=== PATIENT | female | born 1955 | race Caucasian/White ===

== ENCOUNTER 2017-10-03 11:00 | Outpatient (RCR) | payer BC, SELFPAY ==
--- NOTE | 2017-09-21 08:03 | AT_ITS ---
09/21/17 ATx1- See flow sheet. Skilled cueing to complete a LE strengthening program both open and closed chain activities as well as proximal hip girdle stabilization efforts for myokinematic stability of the knee. Program progressed today with resistance. Total Time: 60 minutes Direct Time: 20 minutes Minimal cueing was required when instructed in exercises and minimal cueing for cool down and warm up activities.
--- NOTE | 2017-09-26 11:33 | PTTR_ITS ---
DATE: 09/26/17 SUBJECTIVE: Iain states that there is no great deal of improvements over the past 3-4 weeks, but she openly admits to non compliancy of her HEP. She continues to avoid ascension and dissension of stairs as well as being on her knees or doing lengthy weightbearing activities for prolonged time periods. Pain is variable and sometimes medial and lateral to the knee. Other times she has pressure on the posterior aspect of her knee. While she has been avoiding such activities mentioned earlier, she does feel that she will be able to complete them. OBJECTIVE: Gait: Non antalgic, toe and heel walk WNL ROM: WNL and non painful Accessory Motion: PF and TF joint non painful Strength: Grossly 5/5 Quad/Hamstring, dorsiflexion/plantarflexion non painful Girth- 1cm increase of the (R) central knee verus the (L) Special Testing: Negative Mc Murrays, negative Apleys, negative patella femoral compression. Therapeutic procedures ([id number]). In addition to above assessment she was verbally encourage pt to continue with her HEP and she is now introduce all usual ADLs and functional tasks including reciprocal ascension and dissension stairs, gardening, long distance ambulation etc.. to see how she tolerates. Encourage her to wean and anticipate that she will get to her normal level of activity. Remind her of her burst Bakers Cyst likely contributing to the swelling in her (R) knee and the compression feeling that this can allow. Likely contributing to some of her symptoms at this time. Review POC which is discussed below. Direct treatment time: 30 minutes Total treatment time: 30minutes ASSESSMENT: Pt begins ther ex wellness flowsheet per my direction with show dog trainer see note for specifics. Iain presents with remarkable improvements in regards to her impairments and she continues to appreciate some low grade stiffness and swelling in the (R) knee, but we must not forget the Bakers Cyst burst that she suffered likely contributing to this discomfort. I anticipate that she likely has some underlying OA which allowed for development of her Bakers Cyst, considering todays negative special testing. I encourage pt to continue with a gross conditioning and strengthening program for LE for stability, improved proprioceptive control and general strengthening of the (R) LE to manage her hypothesized arthritic condition. She does not have resolution of symptoms within 3-4 weeks or with time I encourage her to seek ortho consult. Pt is in agreement with plan. PLAN: 2-3 sessions with [employer] for (R) ther ex performance per my direction until pt is appropriate for progression on to the MSP program.
--- NOTE | 2017-09-28 12:04 | PTTR_ITS ---
DATE: 09/28/17 SUBJECTIVE: Pt reports that she was pretty sore after working with the head animal trainer after last treatment. Wonders whether it was the work in the clinic gym or if she had simply overdone it with other scientific informatics project leader and activities. OBJECTIVE: Therapeutic procedures ([id number]). * X See flow sheet: Continued pt's LE strengthening program. Minimal changes, due to reported soreness. Added bridging for core stabilization. * X Provided skilled instruction in proper exercise performance. * X Other: Pt declined need for modalities at end of treatment. Direct treatment time: 25 minutes Total treatment time: 25 minutes
--- NOTE | 2017-10-03 12:19 | PTTR_ITS ---
DATE: 10/03/17 SUBJECTIVE: Pt reports feeling fine today. Reports had some increased discomfort after last session, indicates medial and lateral aspects of anterior knee. Reports that she also had some DOMS after last session. Reports that she feels she had overdone it prior to last treatment and blames that for knee pain, whereas muscle soreness was tolerable. OBJECTIVE: Therapeutic procedures ([id number]). * X See flow sheet: Continued pt's LE and core strengthening program per flow sheet. * X Provided skilled instruction in proper exercise performance: Instructed pt on using gym equipment safely and independently. * X Other: Pt to transition to [facility], recheck in a month with PT. Direct treatment time: 30 minutes Total treatment time: 30 minutes
== END 2017-10-20 23:59 | disposition home or self-care (01) ==
LOC: PT 11:00
PROVIDERS: PCP Family Medicine; Referring Provider Family Medicine; Visit Provider Family Medicine
DX: M25.561 Pain in right knee (principal); M25.461 Effusion, right knee
CPT/HCPCS: 97110; 97113

== ENCOUNTER → 2017-10-20 02:45 | Outpatient (CLI) | payer BC, SELFPAY ==
--- NOTE | 2017-10-20 15:20 | DI.REPORT_ITS ---
SYMPTOMS/DIAGNOSIS: SCREENING, Z12.31 MAMMOGRAMS: Mammograms were interpreted according to the usual protocol including computer analysis with CAD system, tomosynthesis and C view imaging. Comparison is with the prior examinations. No masses or microcalcifications are seen. There is nothing to suggest malignancy. IMPRESSION: Negative mammogram. Routine screening is recommended. Category 1 , breast density category B. MQSA ASSESSMENT OF FINDINGS: Negative. Category 1. Patient will receive a letter notifying them of these results. BI-RADS category B. There are scattered areas of fibroglandular density.
== END ==
PROVIDERS: PCP Family Medicine; Visit Provider Student in an Organized Health Care Education/Training Program
DX: Z12.31 Encounter for screening mammogram for malignant neoplasm of breast (principal)
CPT/HCPCS: 77063; 77067

== ENCOUNTER 2018-04-23 02:24 | Outpatient (CLI) | payer BC, SELFPAY ==
[2018-04-23 11:36] LABS: ALT 28 U/L (12-78); AST 19 U/L (15-37); Albumin 4.3 g/dL (3.4-5.0); Alkaline Phosphatase 109 U/L (46-116); Anion Gap 8.3 mmol/L (3-11); BUN 11 mg/dL (7-18); Bilirubin, Total 0.5 mg/dL (0.2-1.0); CO2 28.7 mmol/L (21.0-32.0); CREATININE 0.84 mg/dL (0.55-1.02); Calcium 9.3 mg/dL (8.5-10.1); Chloride 101 mmol/L (98-107); Cholesterol 157 mg/dL (50-200); Glucose 123 mg/dL (70-100); HDL Cholesterol 51 mg/dL (40-60); LDL CHOLESTEROL 91 mg/dL (<100); Potassium 4.5 mmol/L (3.5-5.1); Sodium 138 mmol/L (136-145); Total Protein 7.4 g/dL (6.4-8.2); Triglyceride 88 mg/dL (30-150)
== END 2018-04-23 02:44 ==
PROVIDERS: Nurse Practitioner; PCP Family Medicine; Visit Provider Student in an Organized Health Care Education/Training Program
DX: E78.5 Hyperlipidemia, unspecified (principal); E11.9 Type 2 diabetes mellitus without complications; R73.01 Impaired fasting glucose
CPT/HCPCS: 36415; 80053; 80061; 83721; 83036

== ENCOUNTER 2018-12-12 00:35 | Outpatient (CLI) | payer BC, SELFPAY ==
--- NOTE | 2018-12-12 16:34 | DI.DEXA_ITS ---
EXAM: XR DEXA BONE DENSITY W/WO QIAN INDICATION: post menopausal, height loss, Z78.0 ASYMPTOMATIC MENOPAUSAL STATE. COMPARISON: No exams were available for comparison TECHNIQUE: 2D digital imaging was performed. FINDINGS: The scanogram is unremarkable. For the left hip, a T-score -0.7 and a Z-score of 0.5 indicate osteop enia and increased fracture risk. For the lumbar spine, a T-score -1.3 and a Z-score 0.5 indicate os teopenia and an increased fracture risk. For the left forearm, a T-score of -1.1 and a Z-score 0.5 a re within the range.
== END 2018-12-12 00:55 ==
PROVIDERS: PCP Nurse Practitioner; Visit Provider Nurse Practitioner
DX: Z78.0 Asymptomatic menopausal state (principal); M85.88 Other specified disorders of bone density and structure, other site
CPT/HCPCS: 77080

== ENCOUNTER 2019-05-11 01:49 | Outpatient (CLI) | payer BC, SELFPAY ==
[2019-05-11 09:20] LABS: HCT 39.1 % (36.0-46.0); HGB 13.1 g/dL (12.0-15.5); Mean Corp. HGB Concentration 33.5 g/dL (32.0-36.0); Mean Corpuscular Hemoglobin 29.4 pg (27.0-33.0); Mean Corpuscular Volume 87.9 fL (80-95); Mean Platelet Volume 11.4 fL (8.0-11.0); Platelet Count 201 x1000/uL (130-400); RBC 4.45 m/cumm (4.00-5.20); RBC Distribution Width 12.5 % (11.7-14.6); White Blood Cell Count 5.48 k/cumm (4.4-10.8)
[2019-05-11 09:35] LABS: Hemoglobin A1C 6.3 % (3.8-5.6)
[2019-05-11 10:34] LABS: ALT 35 U/L (14-59); AST 25 U/L (15-37); Albumin 4.2 g/dL (3.4-5.0); Alkaline Phosphatase 119 U/L (46-116); Anion Gap 6.8 mmol/L (3-11); BUN 17 mg/dL (7-18); Bilirubin, Total 0.6 mg/dL (0.2-1.0); CO2 31.2 mmol/L (21.0-32.0); CREATININE 0.89 mg/dL (0.55-1.02); Calcium 9.1 mg/dL (8.5-10.1); Calculated LDL 117 mg/dL (<100); Chloride 102 mmol/L (98-107); Cholesterol 199 mg/dL (<200); Glucose 129 mg/dL (74-106); HDL Cholesterol 53 mg/dL (40-60); Potassium 4.3 mmol/L (3.5-5.1); Sodium 140 mmol/L (136-145); TSH (W/Ref FT4) 2.25 uIU/mL (0.36-3.74); Total Protein 7.3 g/dL (6.4-8.2); Triglyceride 148 mg/dL (<150)
== END 2019-05-11 02:09 ==
PROVIDERS: PCP Nurse Practitioner; Visit Provider Nurse Practitioner
DX: E78.5 Hyperlipidemia, unspecified (principal); R73.01 Impaired fasting glucose; E11.9 Type 2 diabetes mellitus without complications; F32.9 Major depressive disorder, single episode, unspecified; E66.9 Obesity, unspecified
CPT/HCPCS: 36415; 80053; 80061; 85027; 83036; 84443

== ENCOUNTER 2019-08-27 00:58 | Outpatient (CLI) | payer BC, SELFPAY ==
--- NOTE | 2019-08-27 12:28 | DI.MAMMO_ITS ---
EXAM: MAMMO SCREENING CLINICAL HISTORY: screening, Z12.39 TECHNIQUE: Mammograms were interpreted according to the usual protocol including computer analysis w [employer] CAD system, tomosynthesis and C-view imaging. COMPARISON: 2011 through 2018 FINDINGS: The breasts are composed of mainly fatty density , Breast Density category A. No suspicious masses or suspicious microcalcifications are seen. No skin thickening or abnormal axillary lymph nodes are seen. There has been no significant change from prior exams. IMPRESSION: BI-RADS Category 1, negative. Yearly screening mammography is recommended. Breast Density Category A, fatty density. Density:
== END 2019-08-27 01:18 ==
PROVIDERS: PCP Nurse Practitioner; Visit Provider Nurse Practitioner
DX: Z12.31 Encounter for screening mammogram for malignant neoplasm of breast (principal)
CPT/HCPCS: 77063; 77067

== ENCOUNTER 2019-10-25 03:43 | Outpatient (CLI) | payer BC, SELFPAY ==
[2019-10-25 08:54] LABS: Hemoglobin A1C 5.7 % (<5.7)
== END 2019-10-25 04:03 ==
PROVIDERS: PCP Nurse Practitioner; Visit Provider Family Medicine
DX: E11.9 Type 2 diabetes mellitus without complications (principal)
CPT/HCPCS: 36415; 83036

== ENCOUNTER 2020-02-19 03:17 | Outpatient (CLI) | payer BC, SELFPAY ==
[2020-02-20 03:49] LABS: COVID-19 RT-PCR UVMMC Result Negative (Negative)
== END 2020-02-19 03:37 ==
PROVIDERS: PCP Nurse Practitioner; Visit Provider Internal Medicine Cardiovascular Disease
DX: Z11.59 Encounter for screening for other viral diseases (principal)
CPT/HCPCS: U0003

== ENCOUNTER 2020-02-25 00:41 | Outpatient (CLI) | payer BC, SELFPAY ==
--- NOTE | 2020-02-25 08:50 | ETT_ITS ---
APPROVED REPORT Exam: Exercise Treadmill Patient Location: Out-Patient Room/Bed: Stress Nurse: Becki Salazar RN BMI: 34.71 Baseline Rhythm: Sinus Rhythm Indications: Dyspnea on exertion. Medical History Medical History: HTN, MCDOWELL, Anxiety, Pre-DM, HLD, Obesity Cardiac Medications: Aspirin, Losartan, Atorvastatin Allergies: Desipramine Cardiac Risk Factors: HTN, Hyperlipidemia, FHX of CAD, DM Previous Cardiac Procedures: None Pretest Chest Pain Characteristics: None Exercise History: Physically active (walks daily). Physical Disabilities: None. Lung Sounds: Clear to auscultation Heart Sounds: Regular Stress Test Details Test: Exercise stress testing was performed using a Artur protocol. Rest Stress HR Resting HR Supine: 64 bpm Max Heart Rate (APMHR): 154 bpm Resting HR Standin bpm Target HR (85% APMHR): 130 bpm Max HR Achieved: 146 bpm % of APMHR: 94 Recovery HR: 77 bpm HR response to stress: Normal HR response to stress BP Resting BP Supine: 132/76 mmHg Resting BP Standin/58 mmHg Max BP: 170/64 mmHg Recovery BP: 138/68 mmHg BP response to stress: Normal blood pressure response to stress. ECG Resting ECG: Sinus Rhythm Ectopy: None. Stress ECG: Sinus Tachycardia ST Change: No significant ST segment changes. Arrhythmia: None Recovery ECG: Sinus Rhythm Recovery ST Change: No significant ST segment changes. Recovery Arrhythmia: Rare PVC. Clinical Reason for Termination: Dyspnea, Dizziness Stress Symptoms: Dyspnea, Dizziness Exercise duration: 7 min39 sec Highest Stage Reached: Stage 3: 3.4 mph at 14% grade. Exercise capacity: 9.6 METs Stress ECG Conclusion 1. The patient exercised for 8 minutes (10 METS). Exercise was stopped due to dyspnea. 2. There were no ECG changes suggestive of ischemia. 3. The Awad Score ( 8) estimates an annual cardiovascular mortality of 0% and a five year survival of 95%. Using the Awad Score there is a low probability of any angiographic coronary disease. Stress Test Summary STAGE Time (mins) Speed (mph) Grade (%) HR BP SYMPTOMS METS Supine 64 132/76 SpO2 96% Standing 71 122/58 SpO2 97% 1 3 1.7 10 113 140/66 SOB by minute 2. 4.6 2 6 2.5 12 140 162/60 7 3 9 3.4 14 SOB, dizziness just prior to ending test. 10.2 1 min recovery 122 170/64 Dizziness resolved within seconds of ending test. 3 min recovery 89 162/70 SOB resolved. 6 min recovery 77 138/68 SpO2 98%
== END 2020-02-25 01:01 ==
PROVIDERS: PCP Nurse Practitioner; Visit Provider Internal Medicine Cardiovascular Disease
DX: R06.09 Other forms of dyspnea (principal); I10 Essential (primary) hypertension; E78.5 Hyperlipidemia, unspecified; Z82.49 Family history of ischemic heart disease and other diseases of the circulatory system; E11.9 Type 2 diabetes mellitus without complications
CPT/HCPCS: 93017

== ENCOUNTER 2020-08-07 03:04 | Outpatient (CLI) | payer BC, SELFPAY ==
[2020-08-07 08:24] LABS: Hemoglobin A1C 5.6 % (<5.7)
[2020-08-07 09:15] LABS: ALT 26 U/L (14-59); AST 15 U/L (15-37); Albumin 3.9 g/dL (3.4-5.0); Alkaline Phosphatase 103 U/L (46-116); Anion Gap 8.1 mmol/L (3-11); BUN 8 mg/dL (7-18); Bilirubin, Total 0.4 mg/dL (0.2-1.0); CO2 27.9 mmol/L (21.0-32.0); CREATININE 0.7 mg/dL (0.55-1.02); Calcium 8.8 mg/dL (8.5-10.1); Calculated LDL 72 mg/dL (<100); Chloride 101 mmol/L (98-107); Cholesterol 137 mg/dL (<200); Glucose 128 mg/dL (74-106); HDL Cholesterol 46 mg/dL (40-60); Potassium 4.7 mmol/L (3.5-5.1); Sodium 137 mmol/L (136-145); Total Protein 6.5 g/dL (6.4-8.2); Triglyceride 95 mg/dL (<150)
== END 2020-08-07 03:05 | disposition home or self-care (01) ==
LOC: LBO 03:04
PROVIDERS: PCP Nurse Practitioner; Visit Provider Nurse Practitioner
DX: I10 Essential (primary) hypertension; R73.03 Prediabetes; E78.5 Hyperlipidemia, unspecified; E66.9 Obesity, unspecified
CPT/HCPCS: 36415; 80053; 80061; 83036

== ENCOUNTER 2021-08-18 01:51 | Outpatient (CLI) | payer BC, SELFPAY ==
[2021-08-18 12:29] LABS: HGB 13.3 g/dL (11.2-15.7); MCH 31.5 pg (27.0-33.0); MCV 90 fL (80-95); MPV 12.4 fL (8.0-11.0); Platelet Count 175 10^3/uL (130-400); RBC 4.22 10^6/uL (3.93-5.22); RDW 12.3 % (11.7-14.6); RDW-SD 40.8 fL; WBC 5.43 10^3/uL (4.4-10.8)
[2021-08-18 12:50] LABS: Hemoglobin A1C 5.8 % (<5.7)
[2021-08-18 12:52] LABS: ALT 25 U/L (14-59); AST 22 U/L (15-37); Albumin 4.2 g/dL (3.4-5.0); Alkaline Phosphatase 105 U/L (46-116); Anion Gap 3.5 mmol/L (3-11); BUN 17 mg/dL (7-18); Bilirubin, Total 0.6 mg/dL (0.2-1.0); CO2 30.5 mmol/L (21.0-32.0); CREATININE 0.8 mg/dL (0.55-1.02); Calcium 8.8 mg/dL (8.5-10.1); Calculated LDL 89 mg/dL (<100); Chloride 98 mmol/L (98-107); Cholesterol 163 mg/dL (<200); Glucose 127 mg/dL (74-106); HDL Cholesterol 53 mg/dL (40-60); Potassium 4.6 mmol/L (3.5-5.1); Sodium 132 mmol/L (136-145); Total Protein 7.4 g/dL (6.4-8.2); Triglyceride 107 mg/dL (<150)
== END 2021-08-18 01:52 | disposition home or self-care (01) ==
LOC: LOS 01:52
PROVIDERS: PCP Nurse Practitioner; Visit Provider Nurse Practitioner
DX: E78.5 Hyperlipidemia, unspecified (principal); R73.03 Prediabetes
CPT/HCPCS: 36415; 80053; 80061; 85027; 83036

== ENCOUNTER → 2021-08-30 02:13 | Outpatient (CLI) | payer BC, SELFPAY ==
--- NOTE | 2021-08-30 08:00 | DI.MAMMO_ITS ---
Exam(s) MAMMO SCREENING EXAM: MAMMO SCREENING CLINICAL HISTORY: screening,z12.39. TECHNIQUE: Bilateral full field digital CC and MLO mammographic images were obtained with 3D tomosyn thesis and utilizing computer aided detection (CAD). COMPARISON: Prior mammograms were reviewed, the most recent being August 2019. FINDINGS: There has been no significant change in the appearance and distribution of the fibroglandular tissue No CAD designations. There are no new spiculated masses nor malignant appearing microcalcification groups. There is no significant architectural distortion nor skin thickening-retraction. IMPRESSION: No radiographic evidence of malignancy. BI-RADS Category 1 - Negative Breast Density - Category B - Scattered areas of fibroglandular density Breast density Category C or D implies that the patient has dense breast tissue. Dense breast tissue can make it harder to find cancer on a mammogram. Dense breast tissue is also associated with an incr eased risk of breast cancer. This information about the result of the mammogram report was provided to the patient to raise their awareness. Use this report when you speak with the patient about their risks for breast cancer, which includes their family history. At that time, you may recommend additional screening tests (Ultrasoun d or MRI) as these tests may add significant information. A negative radiographic report should not delay biopsy if a dominant or clinically suspicious mass is present. Up to ten percent of cancers are not identified on mammography. A negative report may reinforce clinical impression. Adenosis and dense breasts may obscure an underlying neoplasm. False positive reports average 6 to 10%. Patient will receive a letter notifying them of these results.
== END ==
PROVIDERS: PCP Nurse Practitioner; Visit Provider Nurse Practitioner
DX: Z12.31 Encounter for screening mammogram for malignant neoplasm of breast (principal)
CPT/HCPCS: 77063; 77067

== ENCOUNTER 2022-09-05 03:27 | Outpatient (CLI) | payer MEDICARE, SELFPAY ==
--- NOTE | 2022-09-05 09:00 | DI.MAMMO_ITS ---
Exam(s) MAMMO SCREENING EXAM: MAMMO SCREENING CLINICAL HISTORY: screening,Z12.39 TECHNIQUE: Mammograms were interpreted according to the usual protocol including computer analysis w [email or web address] CAD system, tomosynthesis and C-view imaging. COMPARISON: 2015 through 2021 FINDINGS: The breasts are composed of scattered fibroglandular densities, Breast Density category B. No suspicious masses or suspicious microcalcifications are seen. No skin thickening or abnormal axillary lymph nodes are seen. There has been no significant change from prior exams. IMPRESSION: BI-RADS Category 1, Negative mammogram Yearly screening mammography is recommended. Breast Density - Category B, scattered fibroglandular densities. A negative radiographic report should not delay biopsy if a dominant or clinically suspicious mass is present. Up to ten percent of cancers are not identified on mammography. A negative report may reinforce clinical impression. Adenosis and dense breasts may obscure an underlying neoplasm. False positive reports average 6 to 10%. Patient will receive a letter notifying them of these results.
== END 2022-09-05 03:47 ==
LOC: DI 03:28
PROVIDERS: PCP Nurse Practitioner; Visit Provider Nurse Practitioner
DX: Z12.31 Encounter for screening mammogram for malignant neoplasm of breast (principal)
CPT/HCPCS: 77063; 77067

== ENCOUNTER 2022-09-05 04:05 | Outpatient (CLI) | payer MEDICARE, SELFPAY ==
[2022-09-05 08:26] LABS: ALT 24 U/L (14-59); AST 21 U/L (15-37); Albumin 4.2 g/dL (3.4-5.0); Alkaline Phosphatase 118 U/L (46-116); Anion Gap 6.7 mmol/L (3-11); BUN 13 mg/dL (7-18); Bilirubin, Total 0.7 mg/dL (0.2-1.0); CO2 30.3 mmol/L (21.0-32.0); CREATININE 0.8 mg/dL (0.55-1.02); Calculated LDL 88 mg/dL (<100); Chloride 101 mmol/L (98-107); Cholesterol 161 mg/dL (<200); Estimated GFR 79.71 (mL/min/1.73m2); Glucose 119 mg/dL (74-106); HDL Cholesterol 62 mg/dL (40-60); Potassium 4.2 mmol/L (3.5-5.1); Sodium 138 mmol/L (136-145); Total Protein 7.4 g/dL (6.4-8.2); Triglyceride 55 mg/dL (<150)
[2022-09-05 08:34] LABS: Hemoglobin A1C 5.6 % (<5.7)
== END 2022-09-05 04:06 | disposition home or self-care (01) ==
LOC: LBO 04:05
PROVIDERS: PCP Nurse Practitioner; Visit Provider Nurse Practitioner
DX: E78.5 Hyperlipidemia, unspecified (principal); L40.9 Psoriasis, unspecified; I10 Essential (primary) hypertension; E11.9 Type 2 diabetes mellitus without complications
CPT/HCPCS: 36415; 80053; 80061; 83036

== ENCOUNTER → 2022-10-21 01:28 | Outpatient (CLI) | payer MEDICARE, SELFPAY ==
--- NOTE | 2022-10-21 08:00 | DI.DEXA_ITS ---
Exam(s) XR DEXA BONE DENSITY W/WO QIAN EXAM: XR DEXA BONE DENSITY W/WO QIAN CLINICAL HISTORY: f/u osteopenia, asymptomatic menopausal state, Z78.0, M85.80 TECHNIQUE: COMPARISON: CR XR DEXA BONE DENSITY W/WO QIAN from 12/12/2018 FINDINGS: Lateral Spine Image: Unremarkable. No compression deformities identified. Left hip: Total T-Score: -1.0. This compares to -0.7 on the prior examination. Total Z-Score: 0.5 T- and Z-scores: Within normal limits. Lumbar Spine: Total T-Score: -0.8. This compares to -1.3 on the prior examination. Total Z-Score: 1.2 T- and Z-scores: Within normal limits. IMPRESSION: No evidence of osteoporosis.
== END ==
PROVIDERS: PCP Nurse Practitioner; Visit Provider Nurse Practitioner
DX: Z78.0 Asymptomatic menopausal state; Z13.820 Encounter for screening for osteoporosis
CPT/HCPCS: 77080

== ENCOUNTER 2023-10-09 02:46 | Outpatient (CLI) | payer MEDICARE, SELFPAY ==
--- NOTE | 2023-10-09 07:30 | DI.MAMMO_ITS ---
Exam(s) MAMMO SCREENING EXAM: MAMMO SCREENING CLINICAL HISTORY: screening,z12.39 TECHNIQUE: Mammograms were interpreted according to the usual protocol including computer analysis w [employer] CAD system, tomosynthesis and C-view imaging. COMPARISON: 2015 through 2022 FINDINGS: The breasts are composed of scattered fibroglandular densities, Breast Density category B. No suspicious masses or suspicious microcalcifications are seen. No skin thickening or abnormal axillary lymph nodes are seen. There has been no significant change from prior exams. IMPRESSION: BI-RADS Category 1, Negative mammogram Yearly screening mammography is recommended. Breast Density - Category B, scattered fibroglandular densities. A negative radiographic report should not delay biopsy if a dominant or clinically suspicious mass is present. Up to ten percent of cancers are not identified on mammography. A negative report may reinforce clinical impression. Adenosis and dense breasts may obscure an underlying neoplasm. False positive reports average 6 to 10%. Patient will receive a letter notifying them of these results.
== END 2023-10-09 03:06 ==
LOC: DI 02:46
PROVIDERS: PCP Nurse Practitioner; Visit Provider Nurse Practitioner
DX: Z12.31 Encounter for screening mammogram for malignant neoplasm of breast (principal)
CPT/HCPCS: 77063; 77067

== ENCOUNTER 2023-11-06 15:03 | Outpatient (REF) | payer MEDICARE, SELFPAY ==
--- NOTE | 2023-11-06 15:00 | ENDOMET_PTH ---
PATIENT: Iain Dow LOC: [facility]#:[id number] AGE/SX: 68/F ROOM: RE11/06/[address]: Jenna Baker : 1955 BED: DIS: 11/06/2023 SPEC #: [id number] RECD: 11/06/23 17:40 STATUS: ALEJANDRO REQ #: [id number] DRISS: 11/06/23 15:[address]: Jenna Baker DEPT: Surgical Specimen RECD BY: Jenni Antony ENTERED: 11/06/23 17:40 SP TYPE: Endomet OTHR DR: Nydia Mosley APRN Tissues: 1 - ENDOMETRIUM BX/CURRETTE Procedures: GROSS AND MICRO LEVEL 4 Comments: [id number]
== END 2023-11-06 15:04 | disposition home or self-care (01) ==
LOC: LBN 15:03
PROVIDERS: PCP Nurse Practitioner; Visit Provider Obstetrics & Gynecology Gynecology
DX: N95.0 Postmenopausal bleeding (principal); Z92.89 Personal history of other medical treatment; C54.3 Malignant neoplasm of fundus uteri
CPT/HCPCS: 88305

== ENCOUNTER 2024-02-26 04:07 | Outpatient (CLI) | payer MEDICARE, SELFPAY ==
[2024-02-26 11:59] LABS: Abs Immature Grans 0.01 10^3/uL (0.0-0.06); Absolute Basophil Count 0.07 10^3/uL (0.0-0.2); Absolute Eosinophil Count 0.19 10^3/uL (0.0-0.7); Absolute Lymphocyte Count 1.45 10^3/uL (1.2-3.4); Absolute Monocyte Count 0.69 10^3/uL (0.1-0.8); Absolute Neutrophil Count 3.46 10^3/uL (1.2-6.7); Basophils % 1.2 %; Eosinophils % 3.2 %; HCT 36.3 % (36.0-46.0); HGB 11.9 g/dL (11.2-15.7); Immature Grans % 0.2 %; Lymphocytes % 24.7 %; MCH 28.3 pg (27.0-33.0); MCHC 32.8 % (32.0-36.0); MCV 86 fL (80-95); MPV 11.3 fL (8.0-11.0); Monocytes % 11.8 %; Neutrophils % 58.9 %; Platelet Count 180 10^3/uL (130-400); RBC 4.21 10^6/uL (3.93-5.22); RDW 13.7 % (11.7-14.6); RDW-SD 42.6 fL; WBC 5.87 10^3/uL (4.4-10.8)
[2024-02-26 12:17] LABS: ALT 26 U/L (14-59); AST 19 U/L (15-37); Albumin 3.9 g/dL (3.4-5.0); Alkaline Phosphatase 117 U/L (46-116); Anion Gap 3.9 mmol/L (3-11); BUN 12 mg/dL (7-18); Bilirubin, Total 0.54 mg/dL (0.2-1.0); CO2 31.1 mmol/L (21.0-32.0); CREATININE 0.8 mg/dL (0.55-1.02); Calcium 8.9 mg/dL (8.5-10.1); Chloride 100 mmol/L (98-107); Estimated GFR 79.22 (mL/min/1.73m2); Glucose 109 mg/dL (74-106); Potassium 4.1 mmol/L (3.5-5.1); Sodium 135 mmol/L (136-145); Total Protein 7.6 g/dL (6.4-8.2)
== END 2024-02-26 04:08 | disposition home or self-care (01) ==
LOC: LBO 04:07
PROVIDERS: PCP Nurse Practitioner; Visit Provider Obstetrics & Gynecology Gynecologic Oncology
DX: C54.1 Malignant neoplasm of endometrium (principal)
CPT/HCPCS: 36415; 80053; 85025

== ENCOUNTER 2024-03-20 04:01 | Outpatient (CLI) | payer MEDICARE, SELFPAY ==
[2024-03-20 10:11] LABS: Abs Immature Grans 0.02 10^3/uL (0.0-0.06); Absolute Basophil Count 0.07 10^3/uL (0.0-0.2); Absolute Eosinophil Count 0.09 10^3/uL (0.0-0.7); Absolute Lymphocyte Count 1.04 10^3/uL (1.2-3.4); Absolute Monocyte Count 0.74 10^3/uL (0.1-0.8); Absolute Neutrophil Count 2.32 10^3/uL (1.2-6.7); Basophils % 1.6 %; Eosinophils % 2.1 %; HCT 34.5 % (36.0-46.0); HGB 11.3 g/dL (11.2-15.7); Immature Grans % 0.5 %; Lymphocytes % 24.3 %; MCH 29.3 pg (27.0-33.0); MCHC 32.8 % (32.0-36.0); MCV 89 fL (80-95); MPV 10.5 fL (8.0-11.0); Monocytes % 17.3 %; Neutrophils % 54.2 %; Platelet Count 158 10^3/uL (130-400); RBC 3.86 10^6/uL (3.93-5.22); RDW 15.3 % (11.7-14.6); RDW-SD 49.2 fL; WBC 4.28 10^3/uL (4.4-10.8)
[2024-03-20 10:56] LABS: ALT 27 U/L (14-59); AST 20 U/L (15-37); Alkaline Phosphatase 117 U/L (46-116); Anion Gap 5.7 mmol/L (3-11); BUN 15 mg/dL (7-18); Bilirubin, Total 0.38 mg/dL (0.2-1.0); CO2 30.3 mmol/L (21.0-32.0); CREATININE 0.8 mg/dL (0.55-1.02); Chloride 102 mmol/L (98-107); Estimated GFR 79.22 (mL/min/1.73m2); Glucose 102 mg/dL (74-106); Potassium 4.3 mmol/L (3.5-5.1); Sodium 138 mmol/L (136-145); Total Protein 7.6 g/dL (6.4-8.2)
== END 2024-03-20 04:02 | disposition home or self-care (01) ==
LOC: LBO 04:01
PROVIDERS: PCP Nurse Practitioner; Visit Provider Obstetrics & Gynecology Gynecologic Oncology
DX: C54.1 Malignant neoplasm of endometrium (principal)
CPT/HCPCS: 36415; 80053; 85025

== ENCOUNTER 2024-04-10 02:20 | Outpatient (CLI) | payer MEDICARE, SELFPAY ==
[2024-04-10 09:30] LABS: Abs Immature Grans 0.01 10^3/uL (0.0-0.06); Absolute Basophil Count 0.03 10^3/uL (0.0-0.2); Absolute Eosinophil Count 0.05 10^3/uL (0.0-0.7); Absolute Lymphocyte Count 0.82 10^3/uL (1.2-3.4); Absolute Monocyte Count 0.52 10^3/uL (0.1-0.8); Absolute Neutrophil Count 0.78 10^3/uL (1.2-6.7); Basophils % 1.4 %; Eosinophils % 2.3 %; HCT 33.4 % (36.0-46.0); HGB 10.9 g/dL (11.2-15.7); Immature Grans % 0.5 %; Lymphocytes % 37.1 %; MCH 29.5 pg (27.0-33.0); MCHC 32.6 % (32.0-36.0); MCV 90 fL (80-95); MPV 10.1 fL (8.0-11.0); Monocytes % 23.5 %; Neutrophils % 35.2 %; Platelet Count 119 10^3/uL (130-400); RDW 16.2 % (11.7-14.6); RDW-SD 53.5 fL; WBC 2.21 10^3/uL (4.4-10.8)
[2024-04-10 10:05] LABS: Diff Comment Diff Reviewed; RBC Morphology Normal
[2024-04-10 10:07] LABS: ALT 34 U/L (14-59); AST 20 U/L (15-37); Albumin 3.9 g/dL (3.4-5.0); Alkaline Phosphatase 107 U/L (46-116); Anion Gap 3.9 mmol/L (3-11); BUN 11 mg/dL (7-18); Bilirubin, Total 0.45 mg/dL (0.2-1.0); CO2 32.1 mmol/L (21.0-32.0); CREATININE 0.8 mg/dL (0.55-1.02); Chloride 101 mmol/L (98-107); Estimated GFR 79.22 (mL/min/1.73m2); Glucose 102 mg/dL (74-106); Sodium 137 mmol/L (136-145); Total Protein 7.4 g/dL (6.4-8.2)
== END 2024-04-10 02:21 | disposition home or self-care (01) ==
PROVIDERS: PCP Nurse Practitioner; Visit Provider Obstetrics & Gynecology Gynecologic Oncology
DX: C54.1 Malignant neoplasm of endometrium (principal)
CPT/HCPCS: 36415; 80053; 85025

== ENCOUNTER 2024-04-16 02:43 | Outpatient (CLI) | payer MEDICARE, SELFPAY ==
[2024-04-16 13:31] LABS: Abs Immature Grans 0.02 10^3/uL (0.0-0.06); Absolute Basophil Count 0.03 10^3/uL (0.0-0.2); Absolute Eosinophil Count 0.04 10^3/uL (0.0-0.7); Absolute Lymphocyte Count 0.99 10^3/uL (1.2-3.4); Absolute Monocyte Count 0.68 10^3/uL (0.1-0.8); Basophils % 0.7 %; Eosinophils % 0.9 %; HCT 33.9 % (36.0-46.0); HGB 11.1 g/dL (11.2-15.7); Immature Grans % 0.4 %; Lymphocytes % 22.2 %; MCH 29.9 pg (27.0-33.0); MCHC 32.7 % (32.0-36.0); MCV 91 fL (80-95); MPV 9.7 fL (8.0-11.0); Monocytes % 15.2 %; Neutrophils % 60.6 %; Platelet Count 162 10^3/uL (130-400); RBC 3.71 10^6/uL (3.93-5.22); RDW-SD 56.2 fL; WBC 4.46 10^3/uL (4.4-10.8)
[2024-04-16 14:04] LABS: ALT 27 U/L (14-59); AST 19 U/L (15-37); Albumin 4.1 g/dL (3.4-5.0); Alkaline Phosphatase 115 U/L (46-116); Anion Gap 3.6 mmol/L (3-11); BUN 15 mg/dL (7-18); Bilirubin, Total 0.48 mg/dL (0.2-1.0); CO2 32.4 mmol/L (21.0-32.0); CREATININE 0.8 mg/dL (0.55-1.02); Calcium 9.3 mg/dL (8.5-10.1); Chloride 102 mmol/L (98-107); Estimated GFR 79.22 (mL/min/1.73m2); Glucose 81 mg/dL (74-106); Potassium 4.3 mmol/L (3.5-5.1); Sodium 138 mmol/L (136-145); Total Protein 7.6 g/dL (6.4-8.2)
== END 2024-04-16 02:44 | disposition home or self-care (01) ==
PROVIDERS: PCP Nurse Practitioner; Visit Provider Obstetrics & Gynecology Gynecologic Oncology
DX: C54.1 Malignant neoplasm of endometrium (principal)
CPT/HCPCS: 36415; 80053; 85025

== ENCOUNTER 2024-05-08 03:55 | Outpatient (CLI) | payer MEDICARE, SELFPAY ==
[2024-05-08 10:08] LABS: Abs Immature Grans 0.01 10^3/uL (0.0-0.06); Absolute Basophil Count 0.04 10^3/uL (0.0-0.2); Absolute Eosinophil Count 0.03 10^3/uL (0.0-0.7); Absolute Lymphocyte Count 0.97 10^3/uL (1.2-3.4); Absolute Neutrophil Count 2.01 10^3/uL (1.2-6.7); Basophils % 1.1 %; Eosinophils % 0.8 %; HCT 28.9 % (36.0-46.0); Immature Grans % 0.3 %; Lymphocytes % 25.8 %; MCH 31.4 pg (27.0-33.0); MCHC 34.6 % (32.0-36.0); MCV 91 fL (80-95); MPV 10.9 fL (8.0-11.0); Monocytes % 18.6 %; Neutrophils % 53.4 %; Platelet Count 164 10^3/uL (130-400); RBC 3.18 10^6/uL (3.93-5.22); RDW 17.1 % (11.7-14.6); RDW-SD 56.3 fL; WBC 3.76 10^3/uL (4.4-10.8)
[2024-05-08 10:53] LABS: ALT 24 U/L (14-59); AST 18 U/L (15-37); Albumin 3.8 g/dL (3.4-5.0); Alkaline Phosphatase 113 U/L (46-116); Anion Gap 9.2 mmol/L (3-11); BUN 14 mg/dL (7-18); Bilirubin, Total 0.5 mg/dL (0.2-1.0); CO2 29.8 mmol/L (21.0-32.0); CREATININE 0.7 mg/dL (0.55-1.02); Calcium 9.5 mg/dL (8.5-10.1); Chloride 100 mmol/L (98-107); Estimated GFR 92.98 (mL/min/1.73m2); Glucose 100 mg/dL (74-106); Potassium 4.3 mmol/L (3.5-5.1); Sodium 139 mmol/L (136-145); Total Protein 7.3 g/dL (6.4-8.2)
== END 2024-05-08 03:56 | disposition home or self-care (01) ==
PROVIDERS: PCP Nurse Practitioner; Visit Provider Obstetrics & Gynecology Gynecologic Oncology
DX: C54.1 Malignant neoplasm of endometrium (principal)
CPT/HCPCS: 36415; 80053; 85025

== ENCOUNTER 2024-06-06 01:01 | Outpatient (CLI) | payer MEDICARE, SELFPAY ==
[2024-06-06 09:31] LABS: Abs Immature Grans 0.01 10^3/uL (0.0-0.06); Absolute Basophil Count 0.02 10^3/uL (0.0-0.2); Absolute Eosinophil Count 0.07 10^3/uL (0.0-0.7); Absolute Lymphocyte Count 0.73 10^3/uL (1.2-3.4); Absolute Monocyte Count 0.21 10^3/uL (0.1-0.8); Absolute Neutrophil Count 1.18 10^3/uL (1.2-6.7); Basophils % 0.9 %; Eosinophils % 3.2 %; HGB 10.6 g/dL (11.2-15.7); Immature Grans % 0.5 %; Lymphocytes % 32.9 %; MCH 34.2 pg (27.0-33.0); MCHC 35.3 % (32.0-36.0); MCV 97 fL (80-95); MPV 10.8 fL (8.0-11.0); Monocytes % 9.5 %; Platelet Count 107 10^3/uL (130-400); RDW 16.4 % (11.7-14.6); RDW-SD 58.5 fL; WBC 2.22 10^3/uL (4.4-10.8)
[2024-06-06 10:00] LABS: Calculated LDL 74 mg/dL (<100); Cholesterol 146 mg/dL (<200); HDL Cholesterol 51 mg/dL (>or=50); Triglyceride 106 mg/dL (<150)
[2024-06-06 10:45] LABS: ALT 27 U/L (14-59); AST 20 U/L (15-37); Albumin 4.1 g/dL (3.4-5.0); Alkaline Phosphatase 108 U/L (46-116); BUN 11 mg/dL (7-18); Bilirubin, Total 0.7 mg/dL (0.2-1.0); CREATININE 0.8 mg/dL (0.55-1.02); Calcium 9.1 mg/dL (8.5-10.1); Chloride 102 mmol/L (98-107); Estimated GFR 79.22 (mL/min/1.73m2); Glucose 125 mg/dL (74-106); Potassium 4.1 mmol/L (3.5-5.1); Sodium 140 mmol/L (136-145); Total Protein 7.3 g/dL (6.4-8.2)
== END 2024-06-06 01:02 | disposition home or self-care (01) ==
PROVIDERS: PCP Nurse Practitioner; Visit Provider Obstetrics & Gynecology Gynecologic Oncology
DX: C54.1 Malignant neoplasm of endometrium (principal); E78.5 Hyperlipidemia, unspecified
CPT/HCPCS: 36415; 80053; 80061; 85025

== ENCOUNTER 2024-06-26 01:49 | Outpatient (CLI) | payer MEDICARE, SELFPAY ==
[2024-06-26 09:24] LABS: Abs Immature Grans 0.04 10^3/uL (0.0-0.06); Absolute Basophil Count 0.02 10^3/uL (0.0-0.2); Absolute Eosinophil Count 0.02 10^3/uL (0.0-0.7); Absolute Lymphocyte Count 1.04 10^3/uL (1.2-3.4); Absolute Monocyte Count 0.59 10^3/uL (0.1-0.8); Absolute Neutrophil Count 2.84 10^3/uL (1.2-6.7); Basophils % 0.4 %; Eosinophils % 0.4 %; HCT 26.9 % (36.0-46.0); HGB 9.6 g/dL (11.2-15.7); Immature Grans % 0.9 %; Lymphocytes % 22.9 %; MCH 35.6 pg (27.0-33.0); MCHC 35.7 % (32.0-36.0); MCV 100 fL (80-95); MPV 10.7 fL (8.0-11.0); Neutrophils % 62.4 %; Platelet Count 162 10^3/uL (130-400); RDW 15.4 % (11.7-14.6); RDW-SD 55.1 fL; WBC 4.55 10^3/uL (4.4-10.8)
[2024-06-26 09:52] LABS: ALT 22 U/L (14-59); AST 20 U/L (15-37); Albumin 3.9 g/dL (3.4-5.0); Alkaline Phosphatase 118 U/L (46-116); Anion Gap 9.8 mmol/L (3-11); BUN 11 mg/dL (7-18); Bilirubin, Total 0.4 mg/dL (0.2-1.0); CO2 27.2 mmol/L (21.0-32.0); CREATININE 0.9 mg/dL (0.55-1.02); Calcium 9.1 mg/dL (8.5-10.1); Chloride 100 mmol/L (98-107); Estimated GFR 68.77 (mL/min/1.73m2); Glucose 181 mg/dL (74-106); Potassium 4.2 mmol/L (3.5-5.1); Sodium 137 mmol/L (136-145); Total Protein 7.1 g/dL (6.4-8.2)
== END 2024-06-26 01:50 | disposition home or self-care (01) ==
LOC: LBO 01:49
PROVIDERS: PCP Nurse Practitioner; Visit Provider Obstetrics & Gynecology Gynecologic Oncology
DX: C54.1 Malignant neoplasm of endometrium (principal)
CPT/HCPCS: 36415; 80053; 85025

== ENCOUNTER 2024-10-11 01:05 | Outpatient (CLI) | payer MEDICARE, SELFPAY ==
--- NOTE | 2024-10-11 16:00 | DI.MAMMO_ITS ---
Exam(s) MAMMO SCREENING EXAM: MAMMO SCREENING CLINICAL HISTORY: screening Z12.39. TECHNIQUE: Bilateral full field digital CC and MLO mammographic images were obtained with 3D tomosynthesis and utilizing computer aided detection (CAD). COMPARISON: Prior mammograms were reviewed. FINDINGS: There has been no significant change in the appearance and distribution of the fibroglandular tissue. There are no CAD designations. There are no new spiculated masses nor malignant appearing microcalcification groups. There is no significant architectural distortion nor skin thickening-retraction. IMPRESSION: No radiographic evidence of malignancy. BI-RADS Category 1 - Negative Breast Density - Category B - There are scattered areas of fibroglandular density. Breast density Category C or D implies that the patient has dense breast tissue. Dense breast tissue can make it harder to find cancer on a mammogram. Dense breast tissue is also associated with an increased risk of breast cancer. This information about the result of the mammogram report was provided to the patient to raise their awareness. Use this report when you speak with the patient about their risks for breast cancer, which includes their family history. At that time, you may recommend additional screening tests (Ultrasound or MRI) as these tests may add significant information. A negative radiographic report should not delay biopsy if a dominant or clinically suspicious mass is present. Up to ten percent of cancers are not identified on mammography. A negative report may reinforce clinical impression. Adenosis and dense breasts may obscure an underlying neoplasm. False positive reports average 6 to 10%. Patient will receive a letter notifying them of these results.
== END 2024-10-11 01:25 ==
LOC: DI 01:05
PROVIDERS: PCP Nurse Practitioner; Visit Provider Nurse Practitioner
DX: Z12.31 Encounter for screening mammogram for malignant neoplasm of breast (principal); R92.323 Mammographic fibroglandular density, bilateral breasts
CPT/HCPCS: 77063; 77067

== ENCOUNTER → 2025-01-22 09:12 | Outpatient (BNVA) | payer MEDICARE, SELFPAY | PROVIDERS: PCP Nurse Practitioner; Referring Provider Nurse Practitioner; Visit Provider Physical Therapy Assistant | DX: Z12.11 Encounter for screening for malignant neoplasm of colon (principal) | CPT/HCPCS: S0285 ==

== ENCOUNTER 2025-01-29 08:15 | Day surgery (SDC) | payer MEDICARE, SELFPAY ==
--- NOTE | 2025-01-28 17:28 | W.ANESPRE ---
General Info Date of Service Date Performed: 01/29/25 Height: 5 ft 2 in Weight: 77.111 kg Body Mass Index (BMI): 31.1 Surgical Procedure: Operation Date: 01/29/25 09:50 Proposed Procedure Side Surgeon minh Naranjo MD Meds Allergies and Home Medications Allergies Allergy/AdvReac Type Severity Reaction Status Date / Time desipramine Allergy Intermediate Hives Verified 01/29/25 08:49 silver (From Tegaderm AG AdvReac Mild Skin Rash Verified 01/29/25 08:49 Mesh) Home Medication ?Medication ?Instructions ?Recorded calcium 600 mg (as 1 ea PO DAILY 10/15/13 carbonate)-vitamin D3 5 mcg (200 unit) tablet cholecalciferol (vitamin D3) 25 1,000 unit PO DAILY 10/15/13 mcg (1,000 unit) tablet docusate sodium 100 mg capsule 100 mg PO PRN 07/10/15 (Colace) multivitamin (Daily Multi-Vitamin 1 ea PO DAILY 10/16/15 tablet) cetirizine 10 mg tablet 10 mg PO DAILY PRN 06/30/17 losartan 50 mg tablet 50 mg PO DAILY #90 tabs 03/06/24 sertraline 100 mg tablet 200 mg (2 x 100 mg) PO DAILY #180 04/01/24 tabs atorvastatin 20 mg tablet 20 mg PO DAILY #90 tab-caps 11/07/24 bisacodyl 5 mg tablet,delayed 5 mg PO ONCE #4 tabs 01/22/25 release (Dulcolax (bisacodyl)) polyethylene glycol 3350 17 17 g PO ONCE #238 grams 01/22/25 gram/dose oral powder trazodone 100 mg tablet 150 mg PO QHS 01/28/25 Current Visit Medications: Current Medications Generic Name Dose Route Start Last Admin Trade Name Freq PRN Reason Stop Dose Admin Ringer's Solution 1,000 mls @ 80 mls/hr 01/29/25 06:00 IV 01/29/25 23:59 INFUSION ODALYS Sodium Chloride 0 ml 01/29/25 06:00 Normal Saline Flush 10 Ml Syr IV 01/29/25 23:59 PRN PRN Sodium Chloride 0 ml 01/29/25 06:00 Normal Saline 10 Ml Vial IJ 01/29/25 23:59 DIRECTED PRN Sterile Water 0 ml 01/29/25 06:00 Water,Injection,Sterile 10 Ml Vial IJ 01/29/25 23:59 DIRECTED PRN PFSH Active Problems Active Problems: Problem Status Onset Code Endometrial cancer Acute ~11/2023 C54.1 Serous adenocarcinoma of uterus Acute C55 History of endometrial biopsy Acute Z92.89 Post-menopausal bleeding Acute N95.0 MCDOWELL (dyspnea on exertion) Acute R06.00 Anxiety Chronic F41.9 Cough Acute R05 HTN (hypertension), benign Acute I10 Obesity Chronic E66.9 Routine medical exam Acute Z00.00 Depression Chronic F32.9 Hyperlipidemia Acute E78.5 Abnormal fasting glucose Acute 07 R73.01 Depressive disorder Acute 10/15/93 F32.9 Hyperlipidemia Acute 10/16/03 E78.5 Psoriasis Acute 10/15/13 L40.9 Trigger finger, left middle finger Acute 07/26/17 M65.332 Trigger middle finger of right hand Acute 07/26/17 M65.331 Medical History Medical History Pre-diabetes COVID (~10/02/23) Seborrheic keratoses Multiple benign melanocytic nevi of upper and lower extremities and trunk H/O cervical polypectomy Psoriasis Postmenopausal (~2010) Hyperlipidemia Hyperglycemia Surgical History Surgical History S/P laparoscopic hysterectomy Trigger Finger release (04/24/12) Dr Nasreen Del Rosario thumb section Colonoscopy - IV Sedation Tobacco Smoking/Tobacco Use Status: Never Passive smoking exposure: No Second hand exposure: No Alcohol Alcohol Intake: former Substance Use Substance use: Never Substance use type: does not use Imaging and Studies Imaging and Studies Study information below may be from another EMR and interpreted by another provider. Please see original notes in EMR for more complete details. Stress Test Summary: 02/25/20 Clinical Reason for Termination: Dyspnea, Dizziness Stress Symptoms: Dyspnea, Dizziness Exercise duration: 7 min39 sec Highest Stage Reached: Stage 3: 3.4 mph at 14% grade. Exercise capacity: 9.6 METs Stress ECG Conclusion 1. The patient exercised for 8 minutes (10 METS). Exercise was stopped due to dyspnea. 2. There were no ECG changes suggestive of ischemia. 3. The Awad Score ( 8) estimates an annual cardiovascular mortality of 0% and a five year survival of 95%. Using the Awad Score there is a low probability of any angiographic coronary disease. Anesthesia Assessment and Plan Anesthesia History Personal History: No History of Anesthesia Complications Family History: No Family History of Anesthesia Complications Exercise Tolerance Exercise Tolerance: Metabolic Equivalents>4 Pertinent Negatives Pertinent Negatives: No Symptoms of GERD, No Major Cardiovascular Symptoms or Complaints, No Major Pulmonary Symptoms or Complaints and No History of CVA/TIA Cardiac & Pulmonary Exam Cardiac Exam: Normal S1/S2 Heart Sounds Pulmonary Exam: Clear Bilateral Breath Sounds Implantable Cardiac Device Does patient have a Pacemaker or an ICD?: No Airway Exam Known Difficult Airway: No Mallampati Class: 2 Mouth Opening: Normal (> 3cm) Thyromental Distance: Greater than 3 cm Neck Range of Motion: Full ROM Neck Circumference: Normal Teeth Condition: Normal Dentition ASA Classification ASA Score: ASA 2 Emergency Case?: No NPO Status NPO Status: NPO Clears >2 hours, Solids >8 hours Anesthesia Plan Resuscitation Status: Full Code Anesthesia Technique: General Anesthesia Airway Planned: Natural Airway Monitors Used: Standard Monitors Preoperative Comments:: 69 yo for colo. Sig PMHx: HTN (losartan), MCDOWELL, anxiety/depression Never smoker,
[2025-01-29 08:56] VITALS: BP 148/78; PULSE 70; RESP 18; TEMP 36.3; O2SAT 97
[2025-01-29] MEDS: Lactated Ringers 1,000 ML 80 ML IV (09:05)
[2025-01-29 09:38] VITALS: BMI 31.1
--- NOTE | 2025-01-29 10:31 | W.PM.DSUDISC ---
Date of service: 01/29/25 Discharge Plan Disposition Patient Disposition: Home Condition: Good Discharge Details Reason For Visit: Screening colonoscopy Attending Provider: Ashely Naranjo Primary Care Provider: Nydia Mosley Home Meds and New Rx's Prescriptions: Continued atorvastatin 20 mg tablet 20 mg PO DAILY Qty: 90 3RF calcium carbonate-vitamin D3 1 EACH tablet 1 ea PO DAILY cholecalciferol (vitamin D3) 1,000 UNIT tablet 1,000 unit PO DAILY Patient Comments: 08/19/14 uses seasonally in winter. dc docusate sodium [Colace] 100 MG capsule 100 mg PO PRN multivitamin [Daily Multi-Vitamin] 1 EACH tablet 1 ea PO DAILY cetirizine 10 MG tablet 10 mg PO DAILY PRN losartan 50 mg tablet 50 mg PO DAILY Qty: 90 3RF sertraline 100 mg tablet 200 mg PO DAILY Qty: 180 3RF Rx Instructions: two tabs daily, or as directed for depression trazodone 100 mg tablet 150 mg PO QHS Rx Instructions: TAKE ONE AND ONE-HALF TABLETS BY MOUTH AT BEDTIME OR DIRECTED FOR DEPRESSION AND SLEEP Discontinued bisacodyl [Dulcolax (bisacodyl)] 5 mg tablet,delayed release (DR/EC) 5 mg PO ONCE Qty: 4 0RF Rx Instructions: Take per colonoscopy instructions provided by ordering providers office polyethylene glycol 3350 17 gram/dose powder 17 g PO ONCE Qty: 238 0RF Rx Instructions: Take per colonoscopy instructions provided by ordering providers office Discharge Instructions Additional Instructions: Your colonoscopy went well today. You did not have any polyps or other abnormal findings. The recommendation would be to have a repeat colonoscopy in 10 years. Please contact the general surgery office if you have further questions or concerns. 1. If tolerated, consume a soft, low fiber diet for 1-2 days. 2[address] Do not drive, drink alcohol, operate machinery, make critical decisions, or do activities that require coordination or balance for 24 hours. 3. Because air was put into your colon during the procedure, expelling air from your rectum (passing gas or farting) is normal. 4. You may not have a bowel movement for 1-3 days because of the colonoscopy prep. This is normal. 5. Go directly to the emergency room if you notice any of the following: Develop chills (warm to touch), or if you have a thermometer and your temperature is above 101 Difficulty breathing or difficultly swallowing Persistent vomiting Severe abdominal pain, other than gas cramps Severe chest pain Black, tarry stools Any bleeding ? exceeding one tablespoon 6. Call your physician if the site where your intravenous was started becomes red, swollen, painful, and warm to touch. 7. Your physician has reviewed your pre-procedure medications. Please continue to take those medications as previously ordered. You will be given specific information/education regarding any changes to your medications before leaving. Stand Alone Forms: [facility]est[facility] Discharge [facility] Azalia Alex ([facility]), Portal Information Activity:: Activity as Tolerated Diet:: As Tolerated Discharge Orders Discharge Orders: Discharge Order (Routine); Ordered 01/29/25 Ordered By: Ashely Naranjo
[2025-01-29 10:32] VITALS: BP 114/61; PULSE 65; RESP 18; TEMP 36.1; O2SAT 95
--- NOTE | 2025-01-29 10:33 | W.COLOREPORT ---
Date of service: 01/29/25 Time of Service: 10:34 Colonoscopy Report Date of procedure: 01/29/25 Pre-op diagnosis general: Screening colonoscopy Post-op diagnosis procedure note: same Procedure: Colonoscopy Surgeon: Ashely Naranjo Anesthesia Type: General:No Airway Estimated blood loss (mL): 0 Pathology: none sent Complications: None Disposition: PACU Indications: Patient is a 69-year-old female who presents for screening colonoscopy. Her most recent colonoscopy was in 2014 and was noted to be normal. She has no changes in her bowel habits or family history of colon cancer. Prep: Miralax/Dulcolax Procedure Start Time: 09:47 Procedure End Time: 10:26 Retraction Time: 10 Findings: Normal colonoscopy. Evidence of external hemorrhoids. Procedure Description: Informed consent was obtained. The patient was taken to the endoscopy suite and placed in the left lateral decubitus position. After adequate intravenous sedation, digital rectal exam was performed, which showed evidence of exernal hemorrhoids. A colonoscope was inserted into the rectum and negotiated to the cecum with some difficulty due to significant looping. The ileocecal valve and appendiceal orifice were identified. The entire colonic mucosa was then carefully circumferentially inspected upon slow withdrawal of the scope. The entire colon appeared normal. In the descending colon there was some remaining stool which was cleared with lavage. The rectum was unremarkable. The patient tolerated the procedure well with no complications. Postoperatively, the patient was transferred to the recovery room in stable condition. [place] Bowel Prep [place] Bowel Prep Right Colon: 3 Left Colon: 2 Transverse Colon: 3 Total Score: 8
--- NOTE | 2025-01-29 10:40 | W.ANESPOSTOP ---
Postoperative Evaluation Date, Time and Location Date Performed: 01/29/25 Time Performed: 10:35 Patient Location: Day Surgery Unit Vital Signs Most Recent Imported Vital Signs: Most Recent Vital Signs Temp Pulse Resp BP Pulse Ox 36.1 C L 65 18 114/61 95 01/29/25 10:32 01/29/25 10:32 01/29/25 10:32 01/29/25 10:32 01/29/25 10:32 Pain Score Most Recent Pain Score: Most Recent Pain Score Pain Level 0 01/29/25 10:32 Assessment Mental Status: Awake (Alert & Oriented to Patient Baseline) Airway and Respiratory Function: Patent airway with normal (patient baseline) respiratory exam Cardiovascular Function: Hemodynamically Stable Hydration Status: Adequately Hydrated Nausea & Vomiting: No Nausea or Vomiting Pain: Pt. Denies Any Pain Peripheral Nerve Block: Patient did not receive a nerve block
[2025-01-29 11:02] VITALS: BP 121/67; PULSE 63; RESP 18; TEMP 36.2; O2SAT 99
== END 2025-01-29 11:31 | disposition home or self-care (01) ==
PROVIDERS: PCP Nurse Practitioner; Visit Provider Student in an Organized Health Care Education/Training Program
PROC: 0DJD8ZZ Inspection of Lower Intestinal Tract, Via Natural or Artificial Opening Endoscopic (ICD-10-PCS; CPT 45378; principal; 2025-01-29 09:45)
DX: Z12.11 Encounter for screening for malignant neoplasm of colon (principal); R06.09 Other forms of dyspnea; I10 Essential (primary) hypertension; F41.9 Anxiety disorder, unspecified; F32.9 Major depressive disorder, single episode, unspecified
CPT/HCPCS: 45378; J2704